=== PATIENT | male | born 1990 | race Two or more races ===

== ENCOUNTER 2016-11-01 17:28 | Emergency (ER) | payer OTHER ==
[2016-11-01 19:26] LABS: Calcium 9.5 mg/dL (8.6-10.3); EGFR African American 130.6 (>60); EGFR Non-African American 101.5 (>60); Potassium 3.9 mmol/L (3.5-5.0)
[2016-11-01 20:01] VITALS: BP 129/89
--- NOTE | 2016-11-01 20:53 | ED ---
Julian Sneed Aidan, scribed for Juan Sexton MD on 11/01/16 at 2051 . Complex/Multi-Sys Presentation - HPI Summary HPI Summary: 25 y/o male presents to the ED after a routine blood draw for high potassium. While in the ED, his potassium level appeared to be normal. No other associated symptoms or factors. - History Of Current Complaint Chief Complaint: EDGeneral Time Seen by Provider: 11/01/16 20:39 Hx Obtained From: Patient Onset/Duration: Sudden Onset, Resolved Timing: Intermittent, Lasting: Severity Currently: None Severity Initially: Moderate Aggravating Factor(s): unknown Alleviating Factor(s): unknown Associated Signs And Symptoms: Positive: Other - no associated symptoms - Allergies/Home Medications Allergies/Adverse Reactions: Allergies Allergy/AdvReac Type Severity Reaction Status Date / Time No Known Allergies Allergy Verified 11/01/16 17:58 PMH/Surg Hx/FS Hx/Imm Hx Infectious Disease History: Yes Infectious Disease History: Denies: Traveled Outside the [place] in Last 30 Days - Family History Known Family History: Positive: Hypertension - Social History Occupation: Unemployed - Pt is in skilled nursing Lives: Alone - in skilled nursing Alcohol Use: Occasionally Smoking Status (MU): Light Every Day Tobacco Smoker Review of Systems Constitutional: Other - reported high potassium level earlier today Negative: Fever, Chills, Fatigue, Skin Diaphoresis Eyes: Negative ENT: Negative Cardiovascular: Negative Respiratory: Negative Gastrointestinal: Negative Genitourinary: Negative Musculoskeletal: Negative Skin: Negative Neurological: Negative Psychological: Normal All Other Systems Reviewed And Are Negative: Yes Physical Exam Triage Information Reviewed: Yes Vital Signs On Initial Exam: Initial Vitals Temp Pulse Resp BP Pulse Ox 98.6 F 74 18 113/75 100 11/01/16 17:54 11/01/16 17:54 11/01/16 17:54 11/01/16 17:54 11/01/16 17:54 Vital Signs Reviewed: Yes Appearance: Positive: Well-Appearing, No Pain Distress Skin: Positive: Warm Eyes: Positive: MINO ENT: Positive: Hearing grossly normal Neck: Positive: Supple Respiratory/Lung Sounds: Positive: Breath Sounds Present Cardiovascular: Positive: RRR Abdomen Description: Positive: Nontender, Soft Bowel Sounds: Positive: Present Musculoskeletal: Positive: Strength/ROM Intact Neurological: Positive: Sensory/Motor Intact Psychiatric: Positive: Affect/Mood Appropriate Diagnostics - Vital Signs Vital Signs Temp Pulse Resp BP Pulse Ox 11/01/16 19:40 98.4 F 79 16 129/89 97 11/01/16 17:54 98.6 F 74 18 113/75 100 - Laboratory Lab Results: Lab Results 11/01/16 Range/Units 18:42 Sodium 135 (133-145) mmol/L Potassium 3.9 (3.5-5.0) mmol/L Chloride 105 (101-111) mmol/L Carbon Dioxide 24 (22-32) mmol/L Anion Gap 6 (2-11) mmol/L BUN 10 (6-24) mg/dL Creatinine 0.91 (0.67-1.17) mg/dL Est GFR ( Amer) 130.6 (>60) Est GFR (Non-Af Amer) 101.5 (>60) BUN/Creatinine Ratio 11.0 (8-20) Glucose 84 (70-100) mg/dL Calcium 9.5 (8.6-10.3) mg/dL Result Diagrams: 11/01/16 18:42 Lab Statement: Any lab studies that have been ordered have been reviewed, and results considered in the medical decision making process. - EKG EKG 1827 Cardiac Rate: NL - 84 BPM EKG Rhythm: Sinus Rhythm EKG Interpretation: NSR Complex Multi-Symp Course/Dx - Diagnoses Provider Diagnoses: false reading, Hyperkalemia Discharge - Discharge Plan Condition: Stable Disposition: HOME The documentation as recorded by the Julian watson Aidan accurately reflects the service I personally performed and the decisions made by , Juan Sexton MD.
== END 2016-11-01 21:03 | disposition home or self-care (01) ==
LOC: ED 17:28
DX: E87.5 Hyperkalemia (principal)
CPT/HCPCS: 36415; 80048; 93005; 99282